=== PATIENT | male | born 1985 | race African-American/Black ===

== ENCOUNTER 2017-07-19 09:09 | Emergency (ER) | payer BC ==
[~2017-07-19] VITALS: Ht 195.6 cm; Wt 88.5 kg
[2017-07-19 09:15] VITALS: BP 140/78
--- NOTE | 2017-07-19 09:24 | PHYS DOC ---
Adult General Chief Complaint Chief Complaint: COUGH HPI HPI Patient is a 31 year old male presents to the ED complaining of cough x 2 weeks. States cough is productive and been getting worse over the last 2 weeks. Associated symptoms include sore throat, rhinorrhea and subjective fever. Denies chest pain, shortness of breath, dizziness, weakness, n/v, abdominal pain , headache or syncope. Review of Systems Review of Systems Constitutional: Denies fever or chills [] Eyes: Denies change in visual acuity, redness, or eye pain [] HENT: Complains of sore throat and rhinorrhea [] Respiratory: Complains of cough. Denies shortness of breath [] Cardiovascular: No additional information not addressed in HPI [] GI: Denies abdominal pain, nausea, vomiting, bloody stools or diarrhea [] : Denies dysuria or hematuria [] Musculoskeletal: Denies back pain or joint pain [] Integument: Denies rash or skin lesions [] Neurologic: Denies headache, focal weakness or sensory changes [] Endocrine: Denies polyuria or polydipsia [] Physical Exam Physical Exam Constitutional: Well developed, well nourished, no acute distress, non-toxic appearance. [] HENT: Normocephalic, atraumatic, bilateral external ears normal, oropharynx moist, MILD PHARYNGEAL ERYTHEMA. no oral exudates, nose normal. [] Eyes: PERRLA, EOMI, conjunctiva normal, no discharge. [] Neck: Normal range of motion, no tenderness, supple, no stridor. [] Cardiovascular:Heart rate regular rhythm, no murmur [] Lungs & Thorax: Bilateral breath sounds. MILD WHEEZING BILATERALLY [] Abdomen: Bowel sounds normal, soft, no tenderness, no masses, no pulsatile masses. [] Skin: Warm, dry, no erythema, no rash. [] Back: No tenderness, no CVA tenderness. [] Extremities: No tenderness, no cyanosis, no clubbing, ROM intact, no edema. [] Neurologic: Alert and oriented X 3, normal motor function, normal sensory function, no focal deficits noted. [] Psychologic: Affect normal, judgement normal, mood normal. [] Current Patient Data Vital Signs Vital Signs Date Time Temp Pulse Resp B/P (MAP) Pulse Ox O2 Delivery O2 Flow Rate FiO2 07/19/17 09:15 98.1 87 20 97 Room Air 98.1 EKG EKG [] Radiology/Procedures Radiology/Procedures PROCEDURE: CHEST PA & LATERAL Indication chest tightness. Frontal and lateral views of the chest were obtained. No prior imaging of the chest is available. The heart, pulmonary vessels and mediastinum appear normal. The lungs are clear. There is no pleural fluid or pneumothorax. The visualized bony structures appear grossly intact. IMPRESSION: No acute or focal process is seen in the chest[] Course & Med Decision Making Course & Med Decision Making Pertinent Labs and Imaging studies reviewed. (See chart for details) [] Dragon Disclaimer Dragon Disclaimer This electronic medical record was generated, in whole or in part, using a voice recognition dictation system. Departure Departure Impression: Primary Impression: Acute bronchitis Disposition: HOME, SELF-CARE Condition: STABLE Referrals: NO PCP (PCP) BOYD MENDEZ MD Patient Instructions: Acute Bronchitis Scripts Albuterol Sulfate (PROAIR HFA INHALER) 8.5 Gm Hfa.aer.ad 1 PUFF INH PRN Q6HRS Y for SHORTNESS OF BREATH, #1 INHALER 0 Refills Prov: DORA BOURGEOIS 07/19/17 Methylprednisolone (MEDROL) 4 Mg Tab.ds.pk 1 PKG PO UD, #1 PKG Prov: DORA BOURGEOIS 07/19/17 Azithromycin (AZITHROMYCIN TABLET) 250 Mg Tablet 1 PKG PO UD, #6 TAB Prov: DORA BOURGEOIS 07/19/17 DORA BOURGEOIS Jul 19, 2017 09:24
--- NOTE | 2017-07-19 09:58 | RAD ---
Indication chest tightness. Frontal and lateral views of the chest were obtained. No prior imaging of the chest is available. The heart, pulmonary vessels and mediastinum appear normal. The lungs are clear. There is no pleural fluid or pneumothorax. The visualized bony structures appear grossly intact. IMPRESSION: No acute or focal process is seen in the chest
[2017-07-19] MEDS ORDERED: METH4TAB2 PO (10:07)
[2017-07-19] MEDS ORDERED: PROAIR HFA8.5 GM INH (10:07)
[2017-07-19] MEDS ORDERED: AZIT250T6 PO (10:07)
== END 2017-07-19 10:34 | disposition home or self-care (01) ==
LOC: ER 09:09
DX: J20.9 Acute bronchitis, unspecified (principal)
CPT/HCPCS: 71020; 99284-25

== ENCOUNTER 2018-03-18 18:36 | Emergency (ER) | payer BC ==
[2018-03-18] MEDS: HYDROcodone/APAP 5/325MG 1 TAB TABLET PO (19:11)
== END 2018-03-18 19:13 | disposition home or self-care (01) ==
LOC: ER 19:13
DX: H66.91 Otitis media, unspecified, right ear (principal); H60.91 Unspecified otitis externa, right ear; F17.200 Nicotine dependence, unspecified, uncomplicated
CPT/HCPCS: 99283

== ENCOUNTER 2018-07-15 00:01 | Emergency (ER) | payer BC ==
[~2018-07-15] VITALS: Ht 195.6 cm; Wt 95.3 kg
[~2018-07-15 00:01] MED LIST: AMOX1TAB61 PO; AZIT250T6 PO; CIPR7.5D EACH EAR; METH4TAB2 PO; PROAIR HFA8.5 GM INH
[2018-07-15] MEDS ORDERED: LIDOCAINE 1% Multi-Dose 20 ML VIAL. INJ ONE (00:15)
--- NOTE | 2018-07-15 00:20 | PHYS DOC ---
Past Medical History Past Medical History: No Pertinent History Past Surgical History: No Surgical History Alcohol Use: Occasionally Drug Use: None Adult General Chief Complaint Chief Complaint: LACERATION/AVULSION HPI HPI Patient is a 32 year old male who presents with right hand lacerations, patient states he punched glass prior to coming to the ED. He is right-handed. Review of Systems Review of Systems Constitutional: Denies fever or chills [] Musculoskeletal: Denies back pain or joint pain [] Integument: Reports right hand lacerations Neurologic: Denies headache, focal weakness or sensory changes [] All other systems were reviewed and found to be within normal limits, except as documented in this note. Current Medications Current Medications Current Medications Medications (Trade) Dose Ordered Sig/Natacha Start Time Stop Time Status Last Admin Dose Admin Ceftriaxone Sodium (Rocephin Im) 1 gm 1X ONCE 07/15/18 01:00 07/15/18 01:01 DC Diphtheria/ Tetanus/Acell Pertussis (Boostrix) 0.5 ml ONCE ONCE 07/15/18 00:30 07/15/18 00:32 DC 07/15/18 00:33 0.5 ML Lidocaine HCl (Lidocaine 1% 20ml Vial) 20 ml 1X ONCE 07/15/18 00:15 07/15/18 00:16 UNV Lidocaine HCl (Lidocaine 1% 50ml Vial) 20 ml 1X ONCE 07/15/18 00:30 07/15/18 00:32 DC 07/15/18 00:30 20 ML Allergies Allergies Allergies Coded Allergies Type Severity Reaction Last Updated Verified No Known Drug Allergies 03/18/18 No Physical Exam Physical Exam Constitutional: Well developed, well nourished, no acute distress, non-toxic appearance. [] Skin: Warm, dry, right dorsal hand mid third and fourth metacarpals with a laceration approximately 4 cm long, there is obvious tendon involvement though patient is able to flex and extend his fingers. Patient also has another laceration on the right middle finger lateral aspect mid phalanx approximately 4 cm long, no obvious tendon involvement. Full range of motion to the right hand and fingers. Adequate radial, medial, ulnar sensation to the right hand and fingers. +2 right radial pulse. Cap refill less than 2 seconds the right fingers. Back: No tenderness, no CVA tenderness. [] Extremities: No tenderness, no cyanosis, no clubbing, ROM intact, no edema. [] Neurologic: Alert and oriented X 3, normal motor function, normal sensory function, no focal deficits noted. [] Psychologic: Affect normal, judgement normal, mood normal. [] Current Patient Data Vital Signs Vital Signs Date Time Temp Pulse Resp B/P (MAP) Pulse Ox O2 Delivery O2 Flow Rate FiO2 07/15/18 00:22 98.3 90 18 115/75 (88) 96 Room Air 98.3 EKG EKG [] Radiology/Procedures Radiology/Procedures Laceration/Wound Repair Wound Location: Right dorsal hand and right middle finger Wound's Depth, Shape: Horizontal to the right dorsal hand and vertical to the right middle finger Wound Length (cm): Right dorsal hand approximately 2 cm, right middle finger approximately 4 cm Wound Explored: clean Irrigated w/ Saline (ccs): 100 Betadine Prep?: Y Anesthesia: 1% of lidocaine Volume Anesthetic (ccs): Approx. 10ml total Wound Repaired With: Ethilon Suture Size/Type: 5..0 /interrupted sutures Number of Sutures: dorsal hand -8 interrupted sutures, right middle finger 11 interrupted sutures Progress : Both wounds were covered with nonstick dressing Course & Med Decision Making Course & Med Decision Making Pertinent Labs and Imaging studies reviewed. (See chart for details) This is a 32-year-old male patient presenting to the ED today with right hand lacerations. Patient has laceration on the right dorsal hand as well as the right middle finger. He punched glass. Dorsal hand laceration also has tendon laceration. Patient able to flex and extend his fingers. Patient was given Rocephin [address] g[address] 00:[address] Cleary hand surgeon at he stated patient can have the laceration closed and he follows up with his office tomorrow. Discharge and cephalexin. Dragon Disclaimer Dragon Disclaimer This electronic medical record was generated, in whole or in part, using a voice recognition dictation system. Departure Departure Impression: Primary Impression: Laceration of right hand Additional Impression: Tendon laceration Disposition: 01 HOME, SELF-CARE Condition: STABLE Referrals: NO PCP (PCP) Follow-up with your doctor or the emergency room in 7-10 days for suture removal Patient Instructions: Laceration Care, Adult Additional Instructions: You have lacerations that were closed with stitches. Please go to [facility] tomorrow for an appointment with Dr. Cleary -hand orthopedic doctor. Monitor the areas for signs of infection including but not limited to increased redness to the area, warmth to the area, yellow drainage from the area and return to the ED if they occur.Complete your antibiotics. Have the stitches removed in 7-10 days. Scripts Cephalexin (CEPHALEXIN) 500 Mg Tablet 1 TAB PO QID, #40 TAB Prov: JASPER ROSARIO APRN 07/15/18 Problem Qualifiers Primary Impression: Laceration of right hand Encounter type: initial encounter Foreign body presence: without foreign body Qualified Codes: S61.411A - Laceration without foreign body of right hand , initial encounter JASPER ROSARIO APRN Jul 15, 2018 00:20
[2018-07-15 00:22] VITALS: BP 115/75
[2018-07-15] MEDS ORDERED: DIPHTH,PERTUSS(ACELL),TET TOX 0.5 ML DISP.SYRIN. VAX IM ONE (00:30)
[2018-07-15] MEDS ORDERED: LIDOCAINE 1% Multi-Dose 50 ML VIAL. INJ ONE (00:30)
[2018-07-15] MEDS ORDERED: cefTRIAXone IM 1 GM VIAL IM ONE (01:00)
[2018-07-15] MEDS ORDERED: CEPH500T PO (01:13)
--- NOTE | 2018-07-15 02:49 | RAD ---
EXAM: PA, oblique and lateral views of the right hand DATE: 07/15/2018 12:12 AM INDICATION: LACERAION TO TOP OF HAND AND FINGERS FROM GLASS COMPARISON: No Prior FINDINGS/ IMPRESSION: No evidence of acute fracture or dislocation. Joint spaces are preserved without significant degenerative/proliferative change. Soft tissue swelling at the base of the index and middle fingers. No definite retained radiopaque foreign body. Electronically signed by: Ajith Nuñez MD (07/15/2018 2:45 AM) [facility] [id number]
== END 2018-07-15 01:26 | disposition home or self-care (01) ==
LOC: ER 00:01
DX: S66.821A Laceration of other specified muscles, fascia and tendons at wrist and hand level, right hand, initial encounter (principal); W22.8XXA Striking against or struck by other objects, initial encounter; Y93.89 Activity, other specified; Y92.89 Other specified places as the place of occurrence of the external cause; Y99.8 Other external cause status
CPT/HCPCS: 12002; 73130; 90471; 90715; 96372; 99284; J0696